=== PATIENT | female | born 1995 | race Caucasian/White ===

== ENCOUNTER 2017-11-07 17:52 | Emergency (ER) | payer OTHER ==
[~2017-11-07] VITALS: Ht 157.5 cm; Wt 47.0 kg
[2017-11-07 18:01] VITALS: BP 128/84; PULSE 107; TEMP 37.3; O2SAT 99; Ht 157.5 cm; Wt 47.0 kg
--- NOTE | 2017-11-07 18:14 | EMERGENCY ROOM VISIT NOTE ---
ED Visit Note First contact with patient: 18:04 CHIEF COMPLAINT: Facial laceration HISTORY OF PRESENT ILLNESS: This 22-year-old female presents the ER with chief complaint of a laceration above her left eye. The patient states that she was holding up a large wooden sign when it fell and struck her just above her left eye. The patient denies any loss of consciousness, headache, dizziness or visual changes. The patient states that he was bleeding a lot. The patient's tetanus is up-to-date. REVIEW OF SYSTEMS: 6 system review was performed and was negative unless stated otherwise in history of present illness. PMH: The patient is healthy; there is no significant medical or surgical history. SOCIAL HISTORY: Patient is a [employer] student. The patient denies tobacco use but admits to occasional alcohol use. PHYSICAL EXAM: Vital Signs: Were reviewed Reviewed Nurse's notes. GEN.: 22-year -old white female appears in no acute distress. MENTAL Status: The patient is alert, oriented, and coherent. EYES: Pupils are round, equal, and react briskly to light. NEURO: Cranial nerves II through XII intact. Fine motor intact with alternating finger motions. Cerebellar function intact with finger- to-nose. FACE: There is a 1 cm superficial laceration over the left eye whose edges are minimally apart. There is no active bleeding and no foreign material in the wound. EMERGENCY DEPARTMENT COURSE: The wound was cleansed with saline and then dried. Dermabond was applied. The patient was discharged home in stable condition. DIAGNOSIS: 1 cm Facial laceration DISCHARGE INSTRUCTIONS: Do not apply antibiotic ointment to the wound. The glue will fall off in several days. You may get her head wet but do not submerge her head in water. Any signs of infection, follow-up with [facility]. Patient condition was: stable. Please see Emergency Department Medical Record for additional patient information; this may include discharge diagnosis, interpretation of EKG, laboratory, and/or radiologic studies, Emergency Department course, etc. Vital Signs Date Time Temp Pulse Resp B/P (MAP) Pulse Ox O2 Delivery O2 Flow Rate FiO2 11/07/17 18:01 37.3 107 18 128/84 99 Room Air Departure Information Referrals No Doctor, Assigned (PCP) Patient Instructions [facility]
[2017-11-07] MEDS ORDERED: BCPILLS PO (18:23)
== END 2017-11-07 18:23 | disposition home or self-care (01) ==
LOC: C.EDB 17:54 → C.EDD 18:23
DX: S01.81XA Laceration without foreign body of other part of head, initial encounter (principal); W20.8XXA Other cause of strike by thrown, projected or falling object, initial encounter; Y92.89 Other specified places as the place of occurrence of the external cause